=== PATIENT | female | born 1960 | race Caucasian/White ===

== ENCOUNTER 2023-05-10 17:02 | Inpatient (IN) | payer MEDICAID ==
[~2023-05-10] VITALS: Ht 160 cm; Wt 60.3 kg
[~2023-05-10 17:02] MED LIST: ALLO100T PO; DIVA500T53 PO; DOCU250C91 PO; PALI156D IM; RISP1TAB89 PO
[2023-05-10 17:51] LABS: GLUCOMETER DEV NAME(LOC) POC.BV; POC SARS-COV2 AG, FIA NEGATIVE (NEGATIVE)
[2023-05-10] MEDS ORDERED: LOSA100T59 PO (17:58)
[2023-05-10] MEDS ORDERED: ATOR20TA65 PO (17:58)
[2023-05-10] MEDS ORDERED: TRAZ150T80 PO (17:58)
[2023-05-10] MEDS ORDERED: RISP125S SQ (17:58)
[2023-05-10] MEDS ORDERED: BENZ0.5T6 PO (17:58)
[2023-05-10] MEDS ORDERED: MIRT-93 PO (17:58)
[2023-05-10] MEDS ORDERED: INFLUENZA VIRUS VACCINE QVS 2023-24 (6MO+)/PF 60 MCG/0.5 ML SYRINGE IM. ONE (18:15)
[2023-05-10 19:49] VITALS: BP 128/81; PULSE 75; RESP 18; TEMP 97.8; O2SAT 96
[2023-05-10 21:26] VITALS: RESP 18; TEMP 98
[2023-05-11 07:41] LABS: GLUCOMETER DEV NAME(LOC) BV2S.; GLUCOSE,POINT OF CARE 129 MG/DL (70-110)
[2023-05-11 07:45] LABS: BASOPHILS % (AUTO) 0.5 % (0.0-2.0); EOSINOPHILS % (AUTO) 1.6 % (1.0-6.0); HEMATOCRIT 37.4 % (36-46); HEMOGLOBIN 12.3 g/dL (12.0-16.0); LYMPHOCYTES % (AUTO) 31.2 % (22.0-44.0); MEAN CORPUSCULAR HEMOGLOBIN 28.8 pg (26.0-34.0); MEAN CORPUSCULAR VOLUME 87 fL (80-100); MONOCYTES # (AUTO) 0.5 K/uL (0.1-1.0); MONOCYTES % (AUTO) 7.4 % (2.0-9.0); NEUTROPHILS # (AUTO) 3.9 K/uL (1.8-7.7); NEUTROPHILS % (AUTO) 59.3 % (40.0-70.0); PLATELET COUNT (AUTO) 221 K/uL (150-450); RED BLOOD CELL COUNT(AUTO) 4.28 MIL/uL (4.00-5.20); RED CELL DISTRIBUTION WIDTH 13.6 % (11.5-14.5); WHITE BLOOD COUNT (AUTO) 6.5 K/uL (4.5-11.0)
[2023-05-11 08:23] LABS: ALBUMIN 3.4 g/dL (3.4-5.0); BILIRUBIN,TOTAL 0.6 mg/dL (0.1-1.0); CALCIUM, TOTAL 9.4 mg/dL (8.8-10.5); CHOL/HDL RATIO 3.1 (3.9-5.7); CREATININE 1.38 mg/dL (0.60-1.30); FREE T4 (FREE THYROXINE) 0.95 ng/dL (0.76-1.46); POTASSIUM 3.8 mmol/L (3.5-5.1); THYROID STIMULATING HORMONE 2.09 uIU/mL (0.36-3.74); TOTAL PROTEIN, SERUM 7.6 g/dL (6.4-8.2)
[2023-05-11 08:37] VITALS: BP 111/82; PULSE 84; RESP 18; TEMP 97.6; O2SAT 98
[2023-05-11] MEDS: HALOPERIDOL 5 MG TABLET PO PRN (09:36)
[2023-05-11] MEDS: LORazepam 2 MG TABLET PO PRN (09:36)
[2023-05-11] MEDS ORDERED: IBUPROFEN 400 MG TABLET PO PRN (14:00)
[2023-05-11] MEDS ORDERED: CloNIDine HCL 0.1 MG TABLET PO PRN (14:00)
[2023-05-11] MEDS ORDERED: PETROLATUM,WHITE 28 GM JELLY TP PRN (14:00)
[2023-05-11] MEDS ORDERED: MAG HYDROX/ALUMINUM HYD/SIMETH ES 30 ML SUSPENSION UDCUP PO PRN (14:00)
[2023-05-11] MEDS ORDERED: ACETAMINOPHEN 325 MG TABLET PO PRN (14:00)
[2023-05-11] MEDS ORDERED: ALBUTEROL SULFATE HFA 90 MCG/PUFF 8 GM INHALER IH PRN (14:00)
[2023-05-11] MEDS ORDERED: GuaiFENesin/D-METHORPHAN [SUGAR-FREE] 200-20MG/10 ML SYRUP UDCUP PO PRN (14:00)
[2023-05-11] MEDS ORDERED: DOCUSATE SODIUM 100 MG CAPSULE PO PRN (14:00)
[2023-05-11] MEDS ORDERED: ONDANSETRON HCL 4 MG TABLET PO PRN (14:00)
[2023-05-11] MEDS ORDERED: LOPERAMIDE HCL 2 MG CAPSULE PO PRN (14:00)
[2023-05-11] MEDS ORDERED: NICOTINE 14 MG/24 HOUR PATCH TD PRN (14:00)
[2023-05-11] MEDS: RisperiDONE 2 MG TABLET PO SCH (17:00)
[2023-05-11] MEDS: MIRTAZAPINE 30 MG TABLET PO SCH (20:21)
[2023-05-11] MEDS: BENZTROPINE MESYLATE 0.5 MG TABLET PO SCH (20:21)
[2023-05-11] MEDS: TraZODone HCL 150 MG TABLET PO SCH (20:21)
[2023-05-12 00:03] VITALS: RESP 18; TEMP 97.8
[2023-05-12 01:44] VITALS: BP 139/62; PULSE 77; RESP 18; TEMP 97.6
[2023-05-12] MEDS: RisperiDONE 2 MG TABLET PO SCH ×2 (08:56→16:39)
[2023-05-12] MEDS: MAGNESIUM HYDROXIDE SUSPENSION 30 ML UDCUP PO PRN (08:56)
[2023-05-12] MEDS: ATORVASTATIN CALCIUM 20 MG TABLET PO SCH (08:56)
[2023-05-12 09:06] LABS: THYROID STIMULATING HORMONE 1.67 uIU/mL (0.36-3.74)
[2023-05-12 09:12] VITALS: BP 147/89; PULSE 80; RESP 18; TEMP 97.5; O2SAT 98
[2023-05-12 09:13] LABS: HEMOGLOBIN A1C 6.1 % (3.8-5.6)
[2023-05-12 09:31] LABS: CHOL/HDL RATIO 3.1 (3.9-5.7)
[2023-05-12] MEDS: LORazepam 2 MG TABLET PO PRN (15:45)
[2023-05-12] MEDS: MIRTAZAPINE 30 MG TABLET PO SCH (20:32)
[2023-05-12] MEDS: BENZTROPINE MESYLATE 0.5 MG TABLET PO SCH (20:32)
[2023-05-12] MEDS: TraZODone HCL 150 MG TABLET PO SCH (20:32)
[2023-05-12 21:06] LABS: GLUCOMETER DEV NAME(LOC) BV2S.; GLUCOSE,POINT OF CARE 180 MG/DL (70-110)
[2023-05-12 21:09] VITALS: BP 120/79; PULSE 87; RESP 18; TEMP 97.6; O2SAT 97
[2023-05-13] MEDS: ZOLPIDEM TARTRATE 10 MG TABLET PO PRN (01:55)
[2023-05-13 06:32] LABS: GLUCOMETER DEV NAME(LOC) BV2S.; GLUCOSE,POINT OF CARE 123 MG/DL (70-110)
[2023-05-13] MEDS: MetFORMIN HCL 500 MG TABLET PO SCH ×2 (06:47→17:08)
[2023-05-13 08:03] LABS: APPEARANCE,URINE CLEAR (CLEAR); BILIRUBIN,URINE NEGATIVE (NEGATIVE); COLOR,URINE COLORLESS (YELLOW); GLUCOSE, URINE (UA) NEGATIVE (NEGATIVE); KETONES,URINE NEGATIVE (NEGATIVE); LEUKOCYTE ESTERASE ,URINE NEGATIVE (NEGATIVE); NITRATE,URINE NEGATIVE (NEGATIVE); OCCULT BLOOD,URINE NEGATIVE (NEGATIVE); PH,URINE 5.5 (5.0-8.0); PH,URINE DRUG SCREEN 5.5 (5.0-8.0); PROTEIN,URINE NEGATIVE (NEGATIVE); SPECIFIC GRAVITIY, URINE 1.006 (1.003-1.030); UROBILINOGEN,URINE <=1.0 mg/dL (<=1.0)
[2023-05-13 08:12] LABS: ALCOHOL, URINE DRUG SCREEN NEGATIVE (NEGATIVE); AMPHET/METH SCREEN,URINE NEGATIVE (NEGATIVE); BARBITURATE SCREEN, URINE NEGATIVE (NEGATIVE); BENZODIAZEPINES SCREEN,URINE NEGATIVE (NEGATIVE); CANNABINOID SCREEN,URINE NEGATIVE (NEGATIVE); COCAINE SCREEN,URINE NEGATIVE (NEGATIVE); METHADONE SCREEN, URINE NEGATIVE (NEGATIVE); OPIATE SCREEN,URINE NEGATIVE (NEGATIVE); PHENCYCLIDINE SCREEN,URINE NEGATIVE (NEGATIVE)
[2023-05-13] MEDS: RisperiDONE 2 MG TABLET PO SCH ×2 (08:18→17:08)
[2023-05-13] MEDS: ATORVASTATIN CALCIUM 20 MG TABLET PO SCH (08:18)
[2023-05-13 09:23] VITALS: BP 136/68; PULSE 83; RESP 16; TEMP 97.5; O2SAT 98
[2023-05-13 14:00] VITALS: BP 131/71; PULSE 91; RESP 19; TEMP 97.3; O2SAT 97
[2023-05-13] MEDS: LORazepam 2 MG TABLET PO PRN (14:03)
[2023-05-13] MEDS: MIRTAZAPINE 30 MG TABLET PO SCH (20:13)
[2023-05-13] MEDS: BENZTROPINE MESYLATE 0.5 MG TABLET PO SCH (20:13)
[2023-05-13] MEDS: TraZODone HCL 150 MG TABLET PO SCH (20:13)
[2023-05-13 20:26] LABS: GLUCOMETER DEV NAME(LOC) BV2S.; GLUCOSE,POINT OF CARE 133 MG/DL (70-110)
[2023-05-13] MEDS: MAGNESIUM HYDROXIDE SUSPENSION 30 ML UDCUP PO PRN (22:23)
[2023-05-14 01:05] VITALS: BP 127/66; PULSE 82; RESP 18; TEMP 97.5; O2SAT 97
[2023-05-14] MEDS: MetFORMIN HCL 500 MG TABLET PO SCH ×2 (06:15→16:34)
[2023-05-14 06:31] LABS: GLUCOMETER DEV NAME(LOC) BV2S.; GLUCOSE,POINT OF CARE 134 MG/DL (70-110)
[2023-05-14] MEDS: ATORVASTATIN CALCIUM 20 MG TABLET PO SCH (08:50)
[2023-05-14] MEDS: RisperiDONE 2 MG TABLET PO SCH ×2 (08:50→16:34)
[2023-05-14 09:08] VITALS: BP 135/69; PULSE 82; RESP 19; TEMP 97.4; O2SAT 100
[2023-05-14] MEDS: LORazepam 2 MG TABLET PO PRN (10:01)
[2023-05-14] MEDS: BENZTROPINE MESYLATE 0.5 MG TABLET PO SCH (20:27)
[2023-05-14] MEDS: TraZODone HCL 150 MG TABLET PO SCH (20:27)
[2023-05-14] MEDS: MIRTAZAPINE 30 MG TABLET PO SCH (21:54)
[2023-05-14 22:15] VITALS: BP 141/89; PULSE 94; RESP 18; TEMP 98.1; O2SAT 96
[2023-05-15 06:31] LABS: GLUCOMETER DEV NAME(LOC) BV2S.; GLUCOSE,POINT OF CARE 118 MG/DL (70-110)
[2023-05-15] MEDS: MetFORMIN HCL 500 MG TABLET PO SCH ×2 (06:39→16:35)
[2023-05-15 08:36] VITALS: BP 140/84; PULSE 91; RESP 18; TEMP 98.6; O2SAT 98
[2023-05-15] MEDS: LORazepam 2 MG TABLET PO PRN (08:53)
[2023-05-15] MEDS: ATORVASTATIN CALCIUM 20 MG TABLET PO SCH (08:53)
[2023-05-15] MEDS: RisperiDONE 2 MG TABLET PO SCH ×2 (08:53→16:35)
[2023-05-15 20:28] VITALS: BP 122/86; PULSE 86; RESP 18; TEMP 97.6; O2SAT 90
[2023-05-15] MEDS: TraZODone HCL 150 MG TABLET PO SCH (20:40)
[2023-05-15] MEDS: MIRTAZAPINE 30 MG TABLET PO SCH (20:40)
[2023-05-15 20:41] LABS: GLUCOMETER DEV NAME(LOC) BV2S.; GLUCOSE,POINT OF CARE 159 MG/DL (70-110)
[2023-05-15] MEDS: BENZTROPINE MESYLATE 0.5 MG TABLET PO SCH (20:41)
[2023-05-16] MEDS: MetFORMIN HCL 500 MG TABLET PO SCH ×2 (06:02→17:22)
[2023-05-16 06:16] LABS: GLUCOMETER DEV NAME(LOC) BV2S.; GLUCOSE,POINT OF CARE 101 MG/DL (70-110)
[2023-05-16] MEDS: ATORVASTATIN CALCIUM 20 MG TABLET PO SCH (09:03)
[2023-05-16] MEDS: RisperiDONE 2 MG TABLET PO SCH ×2 (09:03→17:21)
[2023-05-16 09:14] VITALS: BP 133/68; PULSE 90; RESP 18; TEMP 97.4; O2SAT 95
[2023-05-16 20:32] VITALS: BP 120/59; PULSE 99; RESP 18; TEMP 97.9; O2SAT 98
[2023-05-16 21:55] LABS: GLUCOMETER DEV NAME(LOC) BV2S.; GLUCOSE,POINT OF CARE 95 MG/DL (70-110)
[2023-05-16] MEDS: MIRTAZAPINE 30 MG TABLET PO SCH (22:01)
[2023-05-16] MEDS: TraZODone HCL 150 MG TABLET PO SCH (22:01)
[2023-05-16] MEDS: ZOLPIDEM TARTRATE 10 MG TABLET PO PRN (22:01)
[2023-05-16] MEDS: LORazepam 2 MG TABLET PO PRN (22:01)
[2023-05-16] MEDS: BENZTROPINE MESYLATE 0.5 MG TABLET PO SCH (22:01)
[2023-05-16] MEDS: HALOPERIDOL 5 MG TABLET PO PRN (22:02)
[2023-05-17 06:26] LABS: GLUCOMETER DEV NAME(LOC) BV2S.; GLUCOSE,POINT OF CARE 94 MG/DL (70-110)
[2023-05-17] MEDS: MetFORMIN HCL 500 MG TABLET PO SCH ×2 (06:36→17:23)
[2023-05-17 08:48] VITALS: BP 144/81; PULSE 92; RESP 18; TEMP 98; O2SAT 96
[2023-05-17] MEDS: ATORVASTATIN CALCIUM 20 MG TABLET PO SCH (09:15)
[2023-05-17] MEDS: LORazepam 2 MG TABLET PO PRN (09:15)
[2023-05-17] MEDS: RisperiDONE 2 MG TABLET PO SCH ×2 (09:15→17:23)
[2023-05-17] MEDS: LOSARTAN POTASSIUM 25 MG TABLET PO SCH (09:22)
[2023-05-17] MEDS: HALOPERIDOL 5 MG TABLET PO PRN (10:03)
[2023-05-17] MEDS: TraZODone HCL 150 MG TABLET PO SCH (20:26)
[2023-05-17] MEDS: MIRTAZAPINE 30 MG TABLET PO SCH (20:26)
[2023-05-17] MEDS: BENZTROPINE MESYLATE 0.5 MG TABLET PO SCH (20:26)
[2023-05-17 20:33] VITALS: BP 104/82; PULSE 94; RESP 18; TEMP 97.8; O2SAT 97
[2023-05-17 21:21] LABS: GLUCOMETER DEV NAME(LOC) BV2S.; GLUCOSE,POINT OF CARE 137 MG/DL (70-110)
[2023-05-18 01:25] VITALS: BP 135/64; PULSE 87; RESP 17; TEMP 97.6; O2SAT 97
[2023-05-18] MEDS: LORazepam 2 MG TABLET PO PRN ×3 (01:34→21:55)
[2023-05-18] MEDS: ZOLPIDEM TARTRATE 10 MG TABLET PO PRN ×2 (01:34→21:55)
[2023-05-18] MEDS: MetFORMIN HCL 500 MG TABLET PO SCH ×2 (06:52→16:55)
[2023-05-18 07:11] LABS: GLUCOMETER DEV NAME(LOC) BV2S.; GLUCOSE,POINT OF CARE 101 MG/DL (70-110)
[2023-05-18] MEDS: RisperiDONE 2 MG TABLET PO SCH ×2 (08:46→16:55)
[2023-05-18] MEDS: ATORVASTATIN CALCIUM 20 MG TABLET PO SCH (08:46)
[2023-05-18] MEDS: HALOPERIDOL 5 MG TABLET PO PRN (08:47)
[2023-05-18] MEDS: LOSARTAN POTASSIUM 25 MG TABLET PO SCH (08:47)
[2023-05-18 09:26] VITALS: BP 126/77; PULSE 73; RESP 16; TEMP 97.7; O2SAT 98
[2023-05-18] MEDS: RisperiDONE 3 MG TABLET PO SCH (20:39)
[2023-05-18] MEDS: MIRTAZAPINE 30 MG TABLET PO SCH (20:39)
[2023-05-18] MEDS: TraZODone HCL 150 MG TABLET PO SCH (20:39)
[2023-05-18] MEDS: BENZTROPINE MESYLATE 0.5 MG TABLET PO SCH (20:39)
[2023-05-18 20:57] VITALS: BP 127/79; PULSE 90; RESP 18; TEMP 97.7
[2023-05-18 21:21] LABS: GLUCOMETER DEV NAME(LOC) BV2S.; GLUCOSE,POINT OF CARE 128 MG/DL (70-110)
[2023-05-19 06:36] LABS: GLUCOMETER DEV NAME(LOC) BV2S.; GLUCOSE,POINT OF CARE 108 MG/DL (70-110)
[2023-05-19] MEDS: MetFORMIN HCL 500 MG TABLET PO SCH ×2 (06:38→16:16)
[2023-05-19] MEDS: ATORVASTATIN CALCIUM 20 MG TABLET PO SCH (08:18)
[2023-05-19] MEDS: RisperiDONE 2 MG TABLET PO SCH (08:19)
[2023-05-19] MEDS: LOSARTAN POTASSIUM 25 MG TABLET PO SCH (08:19)
[2023-05-19] MEDS: LORazepam 2 MG TABLET PO PRN ×2 (08:37→15:52)
[2023-05-19 08:46] VITALS: BP 133/100; PULSE 87; RESP 17; TEMP 98; O2SAT 100
[2023-05-19 20:15] VITALS: BP 128/83; PULSE 105; RESP 18; TEMP 97.8; O2SAT 97
[2023-05-19] MEDS: RisperiDONE 3 MG TABLET PO SCH (21:00)
[2023-05-19] MEDS: MIRTAZAPINE 30 MG TABLET PO SCH (21:00)
[2023-05-19] MEDS: BENZTROPINE MESYLATE 0.5 MG TABLET PO SCH (21:00)
[2023-05-19] MEDS: TraZODone HCL 150 MG TABLET PO SCH (21:00)
[2023-05-20 01:46] VITALS: BP 138/69; PULSE 87; RESP 19; TEMP 97.6; O2SAT 95
[2023-05-20] MEDS: ZOLPIDEM TARTRATE 10 MG TABLET PO PRN (01:54)
[2023-05-20] MEDS: LORazepam 2 MG TABLET PO PRN ×3 (01:54→15:48)
[2023-05-20 06:16] LABS: GLUCOMETER DEV NAME(LOC) BV2S.; GLUCOSE,POINT OF CARE 91 MG/DL (70-110)
[2023-05-20] MEDS: MetFORMIN HCL 500 MG TABLET PO SCH ×2 (06:40→16:52)
[2023-05-20] MEDS: RisperiDONE 2 MG TABLET PO SCH (08:12)
[2023-05-20] MEDS: ATORVASTATIN CALCIUM 20 MG TABLET PO SCH (08:12)
[2023-05-20] MEDS: LOSARTAN POTASSIUM 25 MG TABLET PO SCH (08:12)
[2023-05-20 08:16] VITALS: BP 155/67; PULSE 91; RESP 17; TEMP 97.4; O2SAT 97
[2023-05-20] MEDS: HALOPERIDOL 5 MG TABLET PO PRN ×2 (09:55→15:48)
[2023-05-20] MEDS: MIRTAZAPINE 30 MG TABLET PO SCH (20:04)
[2023-05-20] MEDS: RisperiDONE 3 MG TABLET PO SCH (20:04)
[2023-05-20] MEDS: BENZTROPINE MESYLATE 0.5 MG TABLET PO SCH (20:04)
[2023-05-20] MEDS: TraZODone HCL 150 MG TABLET PO SCH (20:04)
[2023-05-20 20:10] VITALS: BP 139/70; PULSE 88; RESP 16; TEMP 98.5; O2SAT 97
[2023-05-20 20:26] LABS: GLUCOMETER DEV NAME(LOC) BV2S.; GLUCOSE,POINT OF CARE 104 MG/DL (70-110)
[2023-05-20 22:02] LABS: GLUCOMETER DEV NAME(LOC) BV2S.; GLUCOSE,POINT OF CARE 110 MG/DL (70-110)
[2023-05-21] MEDS ORDERED: LORazepam 2 MG/ML VIAL IM ONE ×3 (03:45→12:00)
[2023-05-21] MEDS ORDERED: HALOPERIDOL LACTATE 5 MG/ML VIAL IM ONE ×3 (03:45→12:00)
[2023-05-21] MEDS ORDERED: DiphenhydrAMINE HCL 50 MG/ML VIAL IM ONE ×3 (03:45→12:00)
[2023-05-21] MEDS ORDERED: HALOPERIDOL LACTATE 5 MG/ML VIAL ONE (03:46)
[2023-05-21] MEDS ORDERED: DiphenhydrAMINE HCL 50 MG/ML VIAL ONE (03:46)
[2023-05-21] MEDS ORDERED: LORazepam 2 MG/ML VIAL ONE (03:46)
[2023-05-21 06:27] LABS: GLUCOMETER DEV NAME(LOC) BV2S.; GLUCOSE,POINT OF CARE 107 MG/DL (70-110)
[2023-05-21] MEDS: MetFORMIN HCL 500 MG TABLET PO SCH ×2 (06:32→17:20)
[2023-05-21 07:30] LABS: BASOPHILS % (AUTO) 0.4 % (0.0-2.0); EOSINOPHILS % (AUTO) 1.3 % (1.0-6.0); HEMATOCRIT 40.4 % (36-46); HEMOGLOBIN 13.4 g/dL (12.0-16.0); LYMPHOCYTES # (AUTO) 1.9 K/uL (1.0-4.8); LYMPHOCYTES % (AUTO) 27.8 % (22.0-44.0); MEAN CORPUSCULAR HEMOGLOBIN 29.2 pg (26.0-34.0); MEAN CORPUSCULAR HGB CONC 33.2 G/dL (31.0-37.0); MEAN CORPUSCULAR VOLUME 88 fL (80-100); MONOCYTES # (AUTO) 0.4 K/uL (0.1-1.0); MONOCYTES % (AUTO) 5.8 % (2.0-9.0); NEUTROPHILS # (AUTO) 4.3 K/uL (1.8-7.7); NEUTROPHILS % (AUTO) 64.7 % (40.0-70.0); PLATELET COUNT (AUTO) 264 K/uL (150-450); RED BLOOD CELL COUNT(AUTO) 4.59 MIL/uL (4.00-5.20); RED CELL DISTRIBUTION WIDTH 13.1 % (11.5-14.5); WHITE BLOOD COUNT (AUTO) 6.7 K/uL (4.5-11.0)
[2023-05-21 07:43] LABS: ALBUMIN 3.8 g/dL (3.4-5.0); BILIRUBIN,TOTAL 0.5 mg/dL (0.1-1.0); CALCIUM, TOTAL 9.6 mg/dL (8.8-10.5); CREATININE 1.49 mg/dL (0.60-1.30); POTASSIUM 3.8 mmol/L (3.5-5.1); TOTAL PROTEIN, SERUM 8.7 g/dL (6.4-8.2)
[2023-05-21 07:50] LABS: APPEARANCE,URINE CLEAR (CLEAR); BILIRUBIN,URINE NEGATIVE (NEGATIVE); COLOR,URINE LIGHT YELLOW (YELLOW); GLUCOSE, URINE (UA) NEGATIVE (NEGATIVE); KETONES,URINE NEGATIVE (NEGATIVE); LEUKOCYTE ESTERASE ,URINE NEGATIVE (NEGATIVE); NITRATE,URINE NEGATIVE (NEGATIVE); OCCULT BLOOD,URINE NEGATIVE (NEGATIVE); PH,URINE 5.5 (5.0-8.0); PROTEIN,URINE NEGATIVE (NEGATIVE); SPECIFIC GRAVITIY, URINE 1.008 (1.003-1.030); UROBILINOGEN,URINE <=1.0 mg/dL (<=1.0)
[2023-05-21 08:00] LABS: BACTERIA,URINE None Seen /HPF (None Seen); RBC,URINE None Seen /HPF (0-2); SQUAMOUS EPITHELIAL CELL,UR None Seen /LPF (None Seen); WBC,URINE None Seen /HPF (0-5)
[2023-05-21] MEDS: ATORVASTATIN CALCIUM 20 MG TABLET PO SCH (08:19)
[2023-05-21] MEDS: RisperiDONE 2 MG TABLET PO SCH (08:19)
[2023-05-21] MEDS: LOSARTAN POTASSIUM 25 MG TABLET PO SCH (08:19)
[2023-05-21 09:42] VITALS: BP 134/82; PULSE 83; RESP 16; TEMP 97.5; O2SAT 98
[2023-05-21 13:26] VITALS: BP 141/85; PULSE 74; RESP 16; TEMP 97.4
[2023-05-21 20:01] VITALS: BP 149/95; PULSE 97; RESP 18; TEMP 97.9
[2023-05-21] MEDS: BENZTROPINE MESYLATE 0.5 MG TABLET PO SCH (20:14)
[2023-05-21] MEDS: MIRTAZAPINE 30 MG TABLET PO SCH (20:14)
[2023-05-21] MEDS: TraZODone HCL 150 MG TABLET PO SCH (20:14)
[2023-05-21] MEDS: RisperiDONE 3 MG TABLET PO SCH (20:17)
[2023-05-21 21:01] LABS: GLUCOMETER DEV NAME(LOC) BV3S.; GLUCOSE,POINT OF CARE 225 MG/DL (70-110)
[2023-05-22 06:01] LABS: GLUCOMETER DEV NAME(LOC) BV3S.; GLUCOSE,POINT OF CARE 111 MG/DL (70-110)
[2023-05-22] MEDS: MetFORMIN HCL 500 MG TABLET PO SCH ×2 (06:37→16:09)
[2023-05-22] MEDS: RisperiDONE 2 MG TABLET PO SCH (08:02)
[2023-05-22] MEDS: LOSARTAN POTASSIUM 25 MG TABLET PO SCH (08:02)
[2023-05-22] MEDS: ATORVASTATIN CALCIUM 20 MG TABLET PO SCH (08:02)
[2023-05-22 08:15] VITALS: BP 136/82; PULSE 88; RESP 18; TEMP 97.7; O2SAT 97
[2023-05-22] MEDS: MIRTAZAPINE 30 MG TABLET PO SCH (20:05)
[2023-05-22] MEDS: BENZTROPINE MESYLATE 0.5 MG TABLET PO SCH (20:05)
[2023-05-22] MEDS: TraZODone HCL 150 MG TABLET PO SCH (20:05)
[2023-05-22] MEDS: RisperiDONE 4 MG TABLET PO SCH (20:06)
[2023-05-22 21:06] LABS: GLUCOMETER DEV NAME(LOC) BV3S.; GLUCOSE,POINT OF CARE 115 MG/DL (70-110)
[2023-05-23] MEDS: LORazepam 2 MG TABLET PO PRN ×3 (02:07→16:02)
[2023-05-23] MEDS: HALOPERIDOL 5 MG TABLET PO PRN ×3 (02:07→16:02)
[2023-05-23] MEDS: MetFORMIN HCL 500 MG TABLET PO SCH ×2 (06:39→16:02)
[2023-05-23 06:46] LABS: GLUCOMETER DEV NAME(LOC) BV3S.; GLUCOSE,POINT OF CARE 104 MG/DL (70-110)
[2023-05-23 07:35] VITALS: RESP 18; O2SAT 98
[2023-05-23] MEDS: RisperiDONE 2 MG TABLET PO SCH (08:10)
[2023-05-23 08:11] VITALS: BP 147/95; PULSE 100; RESP 18; TEMP 97.9; O2SAT 97
[2023-05-23] MEDS: ATORVASTATIN CALCIUM 20 MG TABLET PO SCH (09:27)
[2023-05-23] MEDS: LOSARTAN POTASSIUM 25 MG TABLET PO SCH (09:28)
[2023-05-23] MEDS ORDERED: ChlordiazePOXIDE HCL 25 MG CAPSULE PO PRN (13:00)
[2023-05-23] MEDS ORDERED: PARoxetine HCL 20 MG TABLET PO SCH (13:15)
[2023-05-23] MEDS: BENZTROPINE MESYLATE 0.5 MG TABLET PO SCH (20:11)
[2023-05-23] MEDS: MIRTAZAPINE 30 MG TABLET PO SCH (20:12)
[2023-05-23] MEDS: TraZODone HCL 150 MG TABLET PO SCH (20:12)
[2023-05-23] MEDS: RisperiDONE 4 MG TABLET PO SCH (20:12)
[2023-05-23 21:00] VITALS: BP 112/60; PULSE 85; RESP 18; TEMP 98; O2SAT 96
[2023-05-23 21:21] LABS: GLUCOMETER DEV NAME(LOC) BV3S.; GLUCOSE,POINT OF CARE 115 MG/DL (70-110)
[2023-05-24] MEDS: MetFORMIN HCL 500 MG TABLET PO SCH ×2 (06:09→16:01)
[2023-05-24 06:21] LABS: GLUCOMETER DEV NAME(LOC) BV3S.; GLUCOSE,POINT OF CARE 94 MG/DL (70-110)
[2023-05-24] MEDS ORDERED: ChlordiazePOXIDE HCL 25 MG CAPSULE PO PRN (07:00)
[2023-05-24] MEDS: RisperiDONE 2 MG TABLET PO SCH (08:13)
[2023-05-24] MEDS: ATORVASTATIN CALCIUM 20 MG TABLET PO SCH (08:13)
[2023-05-24] MEDS: LOSARTAN POTASSIUM 25 MG TABLET PO SCH (08:13)
[2023-05-24 08:30] VITALS: BP 133/90; PULSE 100; RESP 18; TEMP 98.3; O2SAT 95
[2023-05-24] MEDS ORDERED: ChlordiazePOXIDE HCL 25 MG CAPSULE PO SCH (09:00)
[2023-05-24] MEDS: HALOPERIDOL 5 MG TABLET PO PRN (11:26)
[2023-05-24] MEDS: LORazepam 2 MG TABLET PO PRN (11:26)
[2023-05-24] MEDS: MIRTAZAPINE 30 MG TABLET PO SCH (20:00)
[2023-05-24] MEDS: BENZTROPINE MESYLATE 0.5 MG TABLET PO SCH (20:00)
[2023-05-24] MEDS: RisperiDONE 4 MG TABLET PO SCH (20:00)
[2023-05-24] MEDS: TraZODone HCL 150 MG TABLET PO SCH (20:00)
[2023-05-24 21:01] LABS: GLUCOMETER DEV NAME(LOC) BV3S.; GLUCOSE,POINT OF CARE 121 MG/DL (70-110)
[2023-05-25] VITALS (11 sets, daily range): BP systolic 130–141; BP diastolic 71–89; PULSE 80–88; RESP 17–20; TEMP 97.5–98; O2SAT 96–99
[2023-05-25] MEDS: MetFORMIN HCL 500 MG TABLET PO SCH ×2 (05:33→18:01)
[2023-05-25 06:16] LABS: GLUCOMETER DEV NAME(LOC) BV3S.; GLUCOSE,POINT OF CARE 125 MG/DL (70-110)
[2023-05-25] MEDS: ATORVASTATIN CALCIUM 20 MG TABLET PO SCH (08:01)
[2023-05-25] MEDS: LORazepam 2 MG TABLET PO PRN (08:01)
[2023-05-25] MEDS: LOSARTAN POTASSIUM 25 MG TABLET PO SCH (08:01)
[2023-05-25] MEDS: RisperiDONE 2 MG TABLET PO SCH (08:01)
[2023-05-25] MEDS: HALOPERIDOL 5 MG TABLET PO PRN (08:01)
[2023-05-25] MEDS: TraZODone HCL 150 MG TABLET PO SCH (20:03)
[2023-05-25] MEDS: MIRTAZAPINE 30 MG TABLET PO SCH (20:03)
[2023-05-25] MEDS: BENZTROPINE MESYLATE 0.5 MG TABLET PO SCH (20:03)
[2023-05-25] MEDS: RisperiDONE 4 MG TABLET PO SCH (20:05)
[2023-05-25 20:11] LABS: GLUCOMETER DEV NAME(LOC) BV3S.; GLUCOSE,POINT OF CARE 118 MG/DL (70-110)
[2023-05-26] MEDS ORDERED: ChlordiazePOXIDE HCL 10 MG CAPSULE PO PRN (07:00)
[2023-05-26] MEDS: MetFORMIN HCL 500 MG TABLET PO SCH (07:00)
[2023-05-26] MEDS: LOSARTAN POTASSIUM 25 MG TABLET PO SCH (09:00)
[2023-05-26] MEDS ORDERED: ChlordiazePOXIDE HCL 10 MG CAPSULE PO SCH (09:00)
[2023-05-26] MEDS: ATORVASTATIN CALCIUM 20 MG TABLET PO SCH (09:00)
[2023-05-26] MEDS: RisperiDONE 2 MG TABLET PO SCH (09:00)
[2023-05-27] MEDS ORDERED: ChlordiazePOXIDE HCL 10 MG CAPSULE PO PRN (07:00)
== END 2023-05-26 14:23 | disposition short-term general hospital (02) | DRG 750 ==
LOC: B2S 17:22 → B3A 05-21 12:22
PROVIDERS: ADMIT Psychiatry & Neurology Child & Adolescent Psychiatry; ATTEND Psychiatry & Neurology Child & Adolescent Psychiatry
PROC: GZHZZZZ Group Psychotherapy (ICD-10-PCS; principal; 2023-05-13)
DX: F20.0 Paranoid schizophrenia (principal); N17.9 Acute kidney failure, unspecified; D49.6 Neoplasm of unspecified behavior of brain; E78.5 Hyperlipidemia, unspecified; I10 Essential (primary) hypertension; Z20.822 Contact with and (suspected) exposure to COVID-19; G47.00 Insomnia, unspecified; F41.9 Anxiety disorder, unspecified; M10.9 Gout, unspecified; Z79.899 Other long term (current) drug therapy
CPT/HCPCS: 70450; 72125; 73521; 80053; 80061; 80307; 81001; 81003; 82140; 82962; 83036; 84439; 84443; 85025; J1200; J1630; J2060

== ENCOUNTER 2023-05-25 23:28 | Inpatient (IN) | payer MEDICAID, OTHER ==
[~2023-05-25] VITALS: Ht 190.5 cm; Wt 62.0 kg
[~2023-05-25 23:28] MED LIST changes: -ALLO100T PO; +ATOR20TA65 PO; +BENZ0.5T6 PO; -DIVA500T53 PO; -DOCU250C91 PO; +LOSA100T59 PO; +MIRT-93 PO; -PALI156D IM; +RISP125S SQ; -RISP1TAB89 PO; +TRAZ150T80 PO
[2023-05-26 01:38] LABS: BASOPHILS % (AUTO) 0.6 % (0.0-2.0); HEMATOCRIT 37.4 % (36-46); HEMOGLOBIN 12.4 g/dL (12.0-16.0); LYMPHOCYTES # (AUTO) 2.2 K/uL (1.0-4.8); LYMPHOCYTES % (AUTO) 37.2 % (22.0-44.0); MEAN CORPUSCULAR HGB CONC 33.2 G/dL (31.0-37.0); MEAN CORPUSCULAR VOLUME 87 fL (80-100); MONOCYTES # (AUTO) 0.4 K/uL (0.1-1.0); MONOCYTES % (AUTO) 7.4 % (2.0-9.0); NEUTROPHILS # (AUTO) 3.1 K/uL (1.8-7.7); NEUTROPHILS % (AUTO) 51.8 % (40.0-70.0); PLATELET COUNT (AUTO) 235 K/uL (150-450); RED BLOOD CELL COUNT(AUTO) 4.29 MIL/uL (4.00-5.20); RED CELL DISTRIBUTION WIDTH 13.4 % (11.5-14.5); WHITE BLOOD COUNT (AUTO) 5.9 K/uL (4.5-11.0)
[2023-05-26 01:47] LABS: CALCIUM, TOTAL 9.2 mg/dL (8.8-10.5); CREATININE 1.43 mg/dL (0.60-1.30); POTASSIUM 3.8 mmol/L (3.5-5.1)
[2023-05-26 01:55] LABS: ALBUMIN 3.4 g/dL (3.4-5.0); BILIRUBIN,TOTAL 0.6 mg/dL (0.1-1.0); TOTAL PROTEIN, SERUM 7.3 g/dL (6.4-8.2)
[2023-05-26] MEDS ORDERED: LORazepam 1 MG TABLET PO ONE (04:30)
[2023-05-26] MEDS ORDERED: LORazepam 2 MG/ML VIAL IVP ONE ×2 (05:00→17:30)
[2023-05-26] MEDS ORDERED: HALOPERIDOL LACTATE 5 MG/ML VIAL IM ONE ×2 (05:15→05:30)
[2023-05-26] MEDS ORDERED: GADOTERATE MEGLUMINE 10 MMOL/20 ML VIAL IVP ONE (06:18)
[2023-05-26] MEDS ORDERED: OxyCODONE HCL/ACETAMINOPHEN 5-325 MG TABLET PO PRN (07:15)
[2023-05-26] MEDS ORDERED: SODIUM CHLORIDE 0.9% 1,000 ML IV ONE (07:15)
[2023-05-26] MEDS ORDERED: ONDANSETRON HCL 4 MG/2 ML VIAL IVP PRN (07:15)
[2023-05-26] MEDS ORDERED: ACETAMINOPHEN 325 MG TABLET PO PRN (07:15)
[2023-05-26] MEDS: DOCUSATE SODIUM 100 MG CAPSULE PO SCH ×3 (07:59→21:00)
[2023-05-26] MEDS: FAMOTIDINE 20 MG TABLET PO SCH ×2 (07:59→09:39)
[2023-05-26 12:12] LABS: COVID AG,FIA SOURCE NASAL SWAB
[2023-05-26 12:33] LABS: SARS-COV2 (COVID) ANTIGEN,FIA Negative (Negative)
[2023-05-26 12:47] VITALS: BP 143/103; PULSE 89; RESP 20; TEMP 98.4
[2023-05-26] MEDS: AmLODIPine BESYLATE 5 MG TABLET PO SCH (14:05)
[2023-05-26 16:14] VITALS: BP 150/85; PULSE 109; RESP 20; TEMP 98.6
[2023-05-26 20:11] VITALS: BP 113/59; PULSE 100; RESP 18; TEMP 98.2
[2023-05-27] MEDS ORDERED: DEXTROSE 5%-0.45% SODIUM CHL 1,000 ML IV ONE (00:30)
[2023-05-27 04:00] VITALS: BP 118/72; PULSE 97; RESP 18; TEMP 98.6
[2023-05-27] MEDS: LORazepam 2 MG/ML VIAL IVP PRN ×3 (04:11→20:56)
[2023-05-27 06:19] VITALS: BP 127/75; PULSE 98; RESP 16; TEMP 97.9
[2023-05-27] MEDS: DOCUSATE SODIUM 100 MG CAPSULE PO SCH ×2 (08:23→20:56)
[2023-05-27] MEDS: AmLODIPine BESYLATE 5 MG TABLET PO SCH (08:23)
[2023-05-27] MEDS: FAMOTIDINE 20 MG TABLET PO SCH (08:23)
[2023-05-27 11:48] LABS: CREATININE 1.37 mg/dL (0.60-1.30); POTASSIUM 3.6 mmol/L (3.5-5.1)
[2023-05-27 14:47] VITALS: BP_SYST 145; BP_SYST 151; BP_DIAS 85; BP_DIAS 92; PULSE 102; PULSE 115; RESP 20; TEMP 98.3
[2023-05-27 20:45] VITALS: BP 135/78; PULSE 80; RESP 20; TEMP 98.1
[2023-05-28 05:27] VITALS: BP 137/77; PULSE 76; RESP 18; TEMP 97.4
[2023-05-28 07:45] VITALS: BP 144/84; PULSE 80; RESP 19; TEMP 97.7
[2023-05-28] MEDS: FAMOTIDINE 20 MG TABLET PO SCH (09:41)
[2023-05-28] MEDS: DOCUSATE SODIUM 100 MG CAPSULE PO SCH ×2 (09:41→21:00)
[2023-05-28] MEDS: AmLODIPine BESYLATE 5 MG TABLET PO SCH (09:41)
[2023-05-28 15:49] VITALS: BP 157/98; PULSE 98; RESP 19; TEMP 98.3
[2023-05-28 21:00] VITALS: BP 145/91; PULSE 101; RESP 20; TEMP 99.9
[2023-05-28] MEDS: LORazepam 2 MG/ML VIAL IVP PRN (21:58)
[2023-05-29] MEDS: LORazepam 2 MG/ML VIAL IVP PRN (05:37)
[2023-05-29 09:08] VITALS: BP 117/88; PULSE 83; RESP 18; TEMP 98.9
[2023-05-29] MEDS: FAMOTIDINE 20 MG TABLET PO SCH (09:10)
[2023-05-29] MEDS: AmLODIPine BESYLATE 5 MG TABLET PO SCH (09:10)
[2023-05-29] MEDS: DOCUSATE SODIUM 100 MG CAPSULE PO SCH (09:10)
[2023-05-29 10:57] LABS: COVID AG,FIA SOURCE NASAL SWAB
[2023-05-29 11:14] LABS: SARS-COV2 (COVID) ANTIGEN,FIA Negative (Negative)
== END 2023-05-29 15:35 | DRG 58 ==
LOC: EMS 23:28 → 6N 05-26 11:32
PROVIDERS: ADMIT Internal Medicine; ATTEND Internal Medicine
DX: D32.0 Benign neoplasm of cerebral meninges (principal); G93.40 Encephalopathy, unspecified; N17.9 Acute kidney failure, unspecified; F25.9 Schizoaffective disorder, unspecified; Z20.822 Contact with and (suspected) exposure to COVID-19; I10 Essential (primary) hypertension; M10.9 Gout, unspecified; F41.9 Anxiety disorder, unspecified; E78.00 Pure hypercholesterolemia, unspecified; Z79.899 Other long term (current) drug therapy
CPT/HCPCS: 70551; 70553; 80048; 80053; 85025; 99285; G0480; J1630; J2060; J7030

== ENCOUNTER 2023-05-29 09:54 | Inpatient (IN) | payer MEDICAID ==
[~2023-05-29] VITALS: Ht 160 cm; Wt 63.5 kg
[2023-05-29 17:20] VITALS: BP 145/89; PULSE 90; RESP 18; TEMP 98.1; O2SAT 99
[2023-05-29] MEDS ORDERED: PNEUMOCOCCAL VACCINE POLYVALENT 0.5 ML SYRINGE [PPSV23] IM. ONE (18:00)
[2023-05-29] MEDS ORDERED: INFLUENZA VIRUS VACCINE QVS 2023-24 (6MO+)/PF 60 MCG/0.5 ML SYRINGE IM. ONE (18:00)
[2023-05-29] MEDS: DOCUSATE SODIUM 100 MG CAPSULE PO SCH (21:15)
[2023-05-29 21:27] VITALS: BP 125/61; PULSE 75; RESP 18; TEMP 98.1
[2023-05-30 08:11] VITALS: BP 119/58; PULSE 88; RESP 18; TEMP 97.3; O2SAT 97
[2023-05-30] MEDS: FAMOTIDINE 20 MG TABLET PO SCH (08:15)
[2023-05-30] MEDS: LORazepam 2 MG TABLET PO PRN ×2 (08:15→22:12)
[2023-05-30] MEDS: DOCUSATE SODIUM 100 MG CAPSULE PO SCH ×2 (08:15→20:04)
[2023-05-30] MEDS: AmLODIPine BESYLATE 5 MG TABLET PO SCH (08:15)
[2023-05-30] MEDS ORDERED: NICOTINE 14 MG/24 HOUR PATCH TD PRN (10:15)
[2023-05-30] MEDS ORDERED: ACETAMINOPHEN 325 MG TABLET PO PRN (10:15)
[2023-05-30] MEDS ORDERED: GuaiFENesin/D-METHORPHAN [SUGAR-FREE] 200-20MG/10 ML SYRUP UDCUP PO PRN (10:15)
[2023-05-30] MEDS ORDERED: CloNIDine HCL 0.1 MG TABLET PO PRN (10:15)
[2023-05-30] MEDS ORDERED: DOCUSATE SODIUM 100 MG CAPSULE PO PRN (10:15)
[2023-05-30] MEDS ORDERED: ALBUTEROL SULFATE HFA 90 MCG/PUFF 8 GM INHALER IH PRN (10:15)
[2023-05-30] MEDS ORDERED: ONDANSETRON HCL 4 MG TABLET PO PRN (10:15)
[2023-05-30] MEDS ORDERED: MAGNESIUM HYDROXIDE SUSPENSION 30 ML UDCUP PO PRN (10:15)
[2023-05-30] MEDS ORDERED: LOPERAMIDE HCL 2 MG CAPSULE PO PRN (10:15)
[2023-05-30] MEDS ORDERED: PETROLATUM,WHITE 28 GM JELLY TP PRN (10:15)
[2023-05-30] MEDS ORDERED: IBUPROFEN 400 MG TABLET PO PRN (10:15)
[2023-05-30] MEDS ORDERED: MAG HYDROX/ALUMINUM HYD/SIMETH ES 30 ML SUSPENSION UDCUP PO PRN (10:15)
[2023-05-30] MEDS: BENZTROPINE MESYLATE 0.5 MG TABLET PO SCH (20:19)
[2023-05-30] MEDS: RisperiDONE 1 MG TABLET PO SCH (20:19)
[2023-05-30] MEDS ORDERED: MIRTAZAPINE 15 MG TABLET PO SCH (21:00)
[2023-05-30 23:35] VITALS: BP 128/62; PULSE 87; RESP 18; TEMP 97.6; O2SAT 98
[2023-05-31 08:22] VITALS: BP 135/87; PULSE 90; RESP 18; TEMP 97.9; O2SAT 97
[2023-05-31 08:26] LABS: HEMOGLOBIN A1C 5.9 % (3.8-5.6)
[2023-05-31] MEDS: RisperiDONE 1 MG TABLET PO SCH (08:40)
[2023-05-31] MEDS: BENZTROPINE MESYLATE 0.5 MG TABLET PO SCH (08:40)
[2023-05-31] MEDS: LORazepam 2 MG TABLET PO PRN (08:40)
[2023-05-31] MEDS: FAMOTIDINE 20 MG TABLET PO SCH (08:40)
[2023-05-31] MEDS: AmLODIPine BESYLATE 5 MG TABLET PO SCH (08:41)
[2023-05-31] MEDS: DOCUSATE SODIUM 100 MG CAPSULE PO SCH (08:41)
[2023-05-31] MEDS: ATORVASTATIN CALCIUM 20 MG TABLET PO SCH (08:43)
[2023-05-31 08:50] LABS: CHOL/HDL RATIO 3.3 (3.9-5.7); THYROID STIMULATING HORMONE 2.69 uIU/mL (0.36-3.74)
[2023-05-31 17:20] VITALS: RESP 18
[2023-05-31 17:35] VITALS: RESP 19
[2023-05-31 17:50] VITALS: RESP 18
[2023-05-31 18:18] VITALS: BP 120/84; PULSE 99; RESP 18; TEMP 97.9
[2023-05-31 18:30] VITALS: BP 120/84; RESP 18; O2SAT 98
[2023-06-01 00:30] VITALS: BP 134/78; PULSE 71; RESP 18; TEMP 97.3
[2023-06-01] MEDS: LORazepam 2 MG TABLET PO PRN ×2 (04:59→17:37)
[2023-06-01 05:03] VITALS: RESP 18
[2023-06-01 08:07] LABS: HEPATITIS C AB (EIA) Non Reactive (Non Reactive)
[2023-06-01] MEDS: AmLODIPine BESYLATE 5 MG TABLET PO SCH (08:23)
[2023-06-01] MEDS: FAMOTIDINE 20 MG TABLET PO SCH (08:23)
[2023-06-01] MEDS: ATORVASTATIN CALCIUM 20 MG TABLET PO SCH (08:24)
[2023-06-01] MEDS: BENZTROPINE MESYLATE 0.5 MG TABLET PO SCH ×2 (08:28→20:13)
[2023-06-01] MEDS: RisperiDONE 1 MG TABLET PO SCH ×2 (08:29→20:12)
[2023-06-01] MEDS: DOCUSATE SODIUM 100 MG CAPSULE PO SCH ×2 (08:30→20:12)
[2023-06-01 08:41] VITALS: BP 159/66; PULSE 84; RESP 17; TEMP 97.9; O2SAT 98
[2023-06-01] MEDS: MIRTAZAPINE 15 MG TABLET PO SCH (20:13)
[2023-06-01 23:30] VITALS: RESP 18; TEMP 97.8
[2023-06-02] MEDS ORDERED: DiphenhydrAMINE HCL 50 MG/ML VIAL ONE (06:54)
[2023-06-02] MEDS ORDERED: LORazepam 2 MG/ML VIAL ONE (06:54)
[2023-06-02] MEDS ORDERED: HALOPERIDOL LACTATE 5 MG/ML VIAL ONE (06:54)
[2023-06-02] MEDS ORDERED: DiphenhydrAMINE HCL 50 MG/ML VIAL IM ONE (07:30)
[2023-06-02] MEDS ORDERED: LORazepam 2 MG/ML VIAL IM ONE (07:30)
[2023-06-02] MEDS ORDERED: HALOPERIDOL LACTATE 5 MG/ML VIAL IM ONE (07:30)
[2023-06-02 07:49] VITALS: RESP 18
[2023-06-02] MEDS: LORazepam 2 MG TABLET PO PRN ×2 (08:12→21:02)
[2023-06-02] MEDS: BENZTROPINE MESYLATE 0.5 MG TABLET PO SCH ×2 (08:12→20:00)
[2023-06-02] MEDS: RisperiDONE 1 MG TABLET PO SCH (08:12)
[2023-06-02] MEDS: DOCUSATE SODIUM 100 MG CAPSULE PO SCH ×2 (08:12→20:00)
[2023-06-02] MEDS: ATORVASTATIN CALCIUM 20 MG TABLET PO SCH (08:13)
[2023-06-02] MEDS: FAMOTIDINE 20 MG TABLET PO SCH (08:13)
[2023-06-02] MEDS: AmLODIPine BESYLATE 5 MG TABLET PO SCH (08:13)
[2023-06-02] MEDS: MIRTAZAPINE 15 MG TABLET PO SCH (20:00)
[2023-06-02] MEDS: DIVALPROEX SODIUM 500 MG DR TABLET PO SCH (20:01)
[2023-06-02] MEDS: RisperiDONE 3 MG TABLET PO SCH (20:02)
[2023-06-02 21:16] VITALS: BP 121/80; PULSE 99; RESP 18; TEMP 97.8
[2023-06-03] MEDS: BENZTROPINE MESYLATE 0.5 MG TABLET PO SCH ×3 (08:11→21:00)
[2023-06-03] MEDS: RisperiDONE 3 MG TABLET PO SCH ×3 (08:11→21:00)
[2023-06-03] MEDS: AmLODIPine BESYLATE 5 MG TABLET PO SCH (08:11)
[2023-06-03] MEDS: ATORVASTATIN CALCIUM 20 MG TABLET PO SCH (08:11)
[2023-06-03] MEDS: LORazepam 2 MG TABLET PO PRN (08:11)
[2023-06-03] MEDS: FAMOTIDINE 20 MG TABLET PO SCH (08:12)
[2023-06-03] MEDS: DOCUSATE SODIUM 100 MG CAPSULE PO SCH ×3 (08:12→21:00)
[2023-06-03 08:33] VITALS: BP 133/76; PULSE 97; RESP 18; TEMP 97.9; O2SAT 99
[2023-06-03] MEDS: MIRTAZAPINE 15 MG TABLET PO SCH ×2 (20:35→21:00)
[2023-06-03] MEDS: DIVALPROEX SODIUM 500 MG DR TABLET PO SCH ×2 (20:36→21:00)
[2023-06-04] MEDS: FAMOTIDINE 20 MG TABLET PO SCH (08:02)
[2023-06-04] MEDS: BENZTROPINE MESYLATE 0.5 MG TABLET PO SCH ×2 (08:02→20:16)
[2023-06-04] MEDS: LORazepam 2 MG TABLET PO PRN (08:02)
[2023-06-04] MEDS: RisperiDONE 3 MG TABLET PO SCH ×2 (08:02→20:18)
[2023-06-04] MEDS: DOCUSATE SODIUM 100 MG CAPSULE PO SCH ×2 (08:02→20:17)
[2023-06-04] MEDS: ATORVASTATIN CALCIUM 20 MG TABLET PO SCH (08:02)
[2023-06-04] MEDS: AmLODIPine BESYLATE 5 MG TABLET PO SCH (08:02)
[2023-06-04] MEDS: DIVALPROEX SODIUM 500 MG DR TABLET PO SCH (20:17)
[2023-06-04] MEDS: MIRTAZAPINE 15 MG TABLET PO SCH (20:18)
[2023-06-04 23:06] VITALS: BP 148/78; PULSE 100; RESP 18; TEMP 97.3; O2SAT 99
[2023-06-05] MEDS: LORazepam 2 MG TABLET PO PRN ×2 (02:36→10:09)
[2023-06-05] MEDS: BENZTROPINE MESYLATE 0.5 MG TABLET PO SCH ×2 (08:12→20:01)
[2023-06-05] MEDS: FAMOTIDINE 20 MG TABLET PO SCH (08:12)
[2023-06-05] MEDS: DOCUSATE SODIUM 100 MG CAPSULE PO SCH ×2 (08:12→20:02)
[2023-06-05] MEDS: ATORVASTATIN CALCIUM 20 MG TABLET PO SCH (08:12)
[2023-06-05] MEDS: RisperiDONE 3 MG TABLET PO SCH ×2 (08:12→20:01)
[2023-06-05] MEDS: AmLODIPine BESYLATE 5 MG TABLET PO SCH (08:12)
[2023-06-05 08:34] VITALS: BP 128/60; PULSE 79; RESP 17; TEMP 97.3; O2SAT 95
[2023-06-05] MEDS ORDERED: HALOPERIDOL LACTATE 5 MG/ML VIAL ONE (11:03)
[2023-06-05] MEDS ORDERED: DiphenhydrAMINE HCL 50 MG/ML VIAL ONE (11:03)
[2023-06-05] MEDS ORDERED: LORazepam 2 MG/ML VIAL ONE (11:03)
[2023-06-05] MEDS ORDERED: HALOPERIDOL LACTATE 5 MG/ML VIAL IM ONE (11:15)
[2023-06-05] MEDS ORDERED: LORazepam 2 MG/ML VIAL IM ONE (11:15)
[2023-06-05] MEDS ORDERED: DiphenhydrAMINE HCL 50 MG/ML VIAL IM ONE (11:15)
[2023-06-05] MEDS: MIRTAZAPINE 15 MG TABLET PO SCH (20:01)
[2023-06-05] MEDS: DIVALPROEX SODIUM 500 MG DR TABLET PO SCH (20:01)
[2023-06-06] MEDS: LORazepam 2 MG TABLET PO PRN ×3 (02:24→14:18)
[2023-06-06 05:17] VITALS: RESP 17
[2023-06-06] MEDS: AmLODIPine BESYLATE 5 MG TABLET PO SCH (08:16)
[2023-06-06] MEDS: ATORVASTATIN CALCIUM 20 MG TABLET PO SCH (08:16)
[2023-06-06] MEDS: BENZTROPINE MESYLATE 0.5 MG TABLET PO SCH ×2 (08:16→20:31)
[2023-06-06] MEDS: FAMOTIDINE 20 MG TABLET PO SCH (08:17)
[2023-06-06] MEDS: RisperiDONE 3 MG TABLET PO SCH ×2 (08:17→20:32)
[2023-06-06] MEDS: DOCUSATE SODIUM 100 MG CAPSULE PO SCH ×2 (08:19→20:31)
[2023-06-06 08:49] VITALS: BP 148/89; PULSE 100; RESP 18; TEMP 97.6; O2SAT 96
[2023-06-06 20:21] VITALS: BP 140/71; PULSE 86; RESP 19; TEMP 97.5
[2023-06-06] MEDS: DIVALPROEX SODIUM 500 MG DR TABLET PO SCH (20:31)
[2023-06-06] MEDS: MIRTAZAPINE 15 MG TABLET PO SCH (20:32)
[2023-06-07] MEDS: LORazepam 2 MG TABLET PO PRN ×2 (08:00→15:53)
[2023-06-07] MEDS: AmLODIPine BESYLATE 5 MG TABLET PO SCH (08:00)
[2023-06-07] MEDS: FAMOTIDINE 20 MG TABLET PO SCH (08:00)
[2023-06-07] MEDS: DOCUSATE SODIUM 100 MG CAPSULE PO SCH ×2 (08:00→20:08)
[2023-06-07] MEDS: ATORVASTATIN CALCIUM 20 MG TABLET PO SCH (08:00)
[2023-06-07] MEDS: BENZTROPINE MESYLATE 0.5 MG TABLET PO SCH ×2 (08:00→20:08)
[2023-06-07] MEDS: RisperiDONE 3 MG TABLET PO SCH ×2 (08:00→20:08)
[2023-06-07 09:21] VITALS: BP 149/84; PULSE 84; RESP 18; TEMP 98.4
[2023-06-07] MEDS: DIVALPROEX SODIUM 500 MG DR TABLET PO SCH (20:08)
[2023-06-07] MEDS: MIRTAZAPINE 15 MG TABLET PO SCH (20:08)
[2023-06-08 03:56] VITALS: BP 136/76; PULSE 82; TEMP 97.1
[2023-06-08] MEDS: FAMOTIDINE 20 MG TABLET PO SCH (08:17)
[2023-06-08] MEDS: BENZTROPINE MESYLATE 0.5 MG TABLET PO SCH ×3 (08:17→22:08)
[2023-06-08] MEDS: ATORVASTATIN CALCIUM 20 MG TABLET PO SCH (08:17)
[2023-06-08] MEDS: LORazepam 2 MG TABLET PO PRN ×2 (08:17→16:26)
[2023-06-08] MEDS: DOCUSATE SODIUM 100 MG CAPSULE PO SCH ×3 (08:17→22:08)
[2023-06-08] MEDS: AmLODIPine BESYLATE 5 MG TABLET PO SCH (08:17)
[2023-06-08] MEDS: RisperiDONE 3 MG TABLET PO SCH ×3 (08:17→22:09)
[2023-06-08 17:11] VITALS: RESP 18
[2023-06-08 20:03] VITALS: RESP 17
[2023-06-08] MEDS: MIRTAZAPINE 15 MG TABLET PO SCH ×2 (21:00→22:08)
[2023-06-08] MEDS: DIVALPROEX SODIUM 500 MG DR TABLET PO SCH ×2 (21:00→22:08)
[2023-06-09] MEDS: ATORVASTATIN CALCIUM 20 MG TABLET PO SCH (08:17)
[2023-06-09] MEDS: RisperiDONE 3 MG TABLET PO SCH ×2 (08:17→20:25)
[2023-06-09] MEDS: FAMOTIDINE 20 MG TABLET PO SCH (08:17)
[2023-06-09] MEDS: AmLODIPine BESYLATE 5 MG TABLET PO SCH (08:17)
[2023-06-09] MEDS: BENZTROPINE MESYLATE 0.5 MG TABLET PO SCH ×2 (08:17→20:28)
[2023-06-09] MEDS: DOCUSATE SODIUM 100 MG CAPSULE PO SCH ×2 (08:17→20:25)
[2023-06-09] MEDS: LORazepam 2 MG TABLET PO PRN (08:17)
[2023-06-09 09:36] VITALS: BP 135/80; PULSE 85; RESP 18; TEMP 97.5
[2023-06-09] MEDS ORDERED: RisperiDONE ER SUSPENSION 120 MG PRE-FILLED SYRINGE SQ SCH (10:00)
[2023-06-09] MEDS: DIVALPROEX SODIUM 500 MG DR TABLET PO SCH (20:25)
[2023-06-09] MEDS: MIRTAZAPINE 15 MG TABLET PO SCH (20:26)
[2023-06-09 23:49] VITALS: RESP 18
[2023-06-10 08:09] VITALS: BP 140/69; PULSE 110; RESP 18; TEMP 97.5; O2SAT 98
[2023-06-10] MEDS: BENZTROPINE MESYLATE 0.5 MG TABLET PO SCH ×2 (08:10→20:08)
[2023-06-10] MEDS: LORazepam 2 MG TABLET PO PRN ×2 (08:10→16:33)
[2023-06-10] MEDS: FAMOTIDINE 20 MG TABLET PO SCH (08:11)
[2023-06-10] MEDS: DOCUSATE SODIUM 100 MG CAPSULE PO SCH ×2 (08:11→20:03)
[2023-06-10] MEDS: AmLODIPine BESYLATE 5 MG TABLET PO SCH (08:11)
[2023-06-10] MEDS: ATORVASTATIN CALCIUM 20 MG TABLET PO SCH (08:12)
[2023-06-10] MEDS: MIRTAZAPINE 15 MG TABLET PO SCH (20:03)
[2023-06-10] MEDS: DIVALPROEX SODIUM 500 MG DR TABLET PO SCH (20:03)
[2023-06-10] MEDS: RisperiDONE 3 MG TABLET PO SCH (20:04)
[2023-06-10 20:44] VITALS: BP 139/66; PULSE 96; RESP 17; TEMP 97.4; O2SAT 98
[2023-06-11 08:22] VITALS: RESP 16
[2023-06-11] MEDS: ATORVASTATIN CALCIUM 20 MG TABLET PO SCH (08:23)
[2023-06-11] MEDS: LORazepam 2 MG TABLET PO PRN (08:24)
[2023-06-11] MEDS: AmLODIPine BESYLATE 5 MG TABLET PO SCH (08:24)
[2023-06-11] MEDS: FAMOTIDINE 20 MG TABLET PO SCH (08:24)
[2023-06-11] MEDS: DOCUSATE SODIUM 100 MG CAPSULE PO SCH ×2 (08:24→22:02)
[2023-06-11] MEDS: BENZTROPINE MESYLATE 0.5 MG TABLET PO SCH ×2 (08:25→22:03)
[2023-06-11 20:29] VITALS: RESP 18
[2023-06-11] MEDS: DIVALPROEX SODIUM 500 MG DR TABLET PO SCH (22:02)
[2023-06-11] MEDS: MIRTAZAPINE 15 MG TABLET PO SCH (22:03)
[2023-06-11] MEDS: RisperiDONE 3 MG TABLET PO SCH (22:03)
[2023-06-12 08:18] VITALS: BP 161/69; PULSE 93; RESP 18; TEMP 97.9; O2SAT 97
[2023-06-12] MEDS: AmLODIPine BESYLATE 5 MG TABLET PO SCH (08:36)
[2023-06-12] MEDS: ATORVASTATIN CALCIUM 20 MG TABLET PO SCH (08:36)
[2023-06-12] MEDS: DOCUSATE SODIUM 100 MG CAPSULE PO SCH ×2 (08:36→20:14)
[2023-06-12] MEDS: FAMOTIDINE 20 MG TABLET PO SCH (08:36)
[2023-06-12] MEDS: BENZTROPINE MESYLATE 0.5 MG TABLET PO SCH ×2 (08:38→20:16)
[2023-06-12] MEDS: LORazepam 2 MG TABLET PO PRN (17:38)
[2023-06-12 20:10] VITALS: RESP 18
[2023-06-12] MEDS: RisperiDONE 3 MG TABLET PO SCH (20:15)
[2023-06-12] MEDS: DIVALPROEX SODIUM 500 MG DR TABLET PO SCH (20:15)
[2023-06-12] MEDS: MIRTAZAPINE 15 MG TABLET PO SCH (20:15)
[2023-06-13] MEDS: LORazepam 2 MG TABLET PO PRN ×2 (00:33→08:11)
[2023-06-13 08:05] VITALS: RESP 16
[2023-06-13] MEDS: DOCUSATE SODIUM 100 MG CAPSULE PO SCH ×2 (08:11→20:32)
[2023-06-13] MEDS: FAMOTIDINE 20 MG TABLET PO SCH (08:11)
[2023-06-13] MEDS: AmLODIPine BESYLATE 5 MG TABLET PO SCH (08:11)
[2023-06-13] MEDS: ATORVASTATIN CALCIUM 20 MG TABLET PO SCH (08:11)
[2023-06-13] MEDS: BENZTROPINE MESYLATE 0.5 MG TABLET PO SCH ×2 (08:12→20:32)
[2023-06-13] MEDS: MIRTAZAPINE 15 MG TABLET PO SCH (20:29)
[2023-06-13] MEDS: DIVALPROEX SODIUM 500 MG DR TABLET PO SCH (20:32)
[2023-06-13] MEDS: RisperiDONE 3 MG TABLET PO SCH (20:32)
[2023-06-13 21:09] VITALS: BP 134/75; PULSE 82; RESP 16; TEMP 97.8; O2SAT 98
[2023-06-14 08:07] VITALS: BP 142/99; PULSE 81; RESP 17; TEMP 98.2; O2SAT 97
[2023-06-14] MEDS: ATORVASTATIN CALCIUM 20 MG TABLET PO SCH (08:39)
[2023-06-14] MEDS: AmLODIPine BESYLATE 5 MG TABLET PO SCH (08:39)
[2023-06-14] MEDS: BENZTROPINE MESYLATE 0.5 MG TABLET PO SCH ×2 (08:39→20:31)
[2023-06-14] MEDS: DOCUSATE SODIUM 100 MG CAPSULE PO SCH ×2 (08:39→20:26)
[2023-06-14] MEDS: LORazepam 2 MG TABLET PO PRN (08:39)
[2023-06-14] MEDS: FAMOTIDINE 20 MG TABLET PO SCH (08:39)
[2023-06-14] MEDS: MIRTAZAPINE 15 MG TABLET PO SCH (20:26)
[2023-06-14] MEDS: RisperiDONE 3 MG TABLET PO SCH (20:26)
[2023-06-14] MEDS: DIVALPROEX SODIUM 500 MG DR TABLET PO SCH (20:26)
[2023-06-14 21:00] VITALS: BP 141/81; PULSE 93; RESP 16; TEMP 98.2; O2SAT 98
[2023-06-15] MEDS: LORazepam 2 MG TABLET PO PRN (08:04)
[2023-06-15] MEDS: DOCUSATE SODIUM 100 MG CAPSULE PO SCH ×2 (08:04→21:39)
[2023-06-15] MEDS: ATORVASTATIN CALCIUM 20 MG TABLET PO SCH (08:04)
[2023-06-15] MEDS: FAMOTIDINE 20 MG TABLET PO SCH (08:04)
[2023-06-15] MEDS: AmLODIPine BESYLATE 5 MG TABLET PO SCH (08:05)
[2023-06-15 08:18] VITALS: BP 123/81; PULSE 100; RESP 18; TEMP 98; O2SAT 97
[2023-06-15] MEDS: BENZTROPINE MESYLATE 0.5 MG TABLET PO SCH ×2 (08:43→21:45)
[2023-06-15] MEDS: RisperiDONE 3 MG TABLET PO SCH (21:39)
[2023-06-15] MEDS: DIVALPROEX SODIUM 500 MG DR TABLET PO SCH (21:39)
[2023-06-15] MEDS: MIRTAZAPINE 15 MG TABLET PO SCH (21:40)
[2023-06-15 22:10] VITALS: BP 122/80; PULSE 88; RESP 16; TEMP 98.3; O2SAT 99
[2023-06-16] MEDS: FAMOTIDINE 20 MG TABLET PO SCH (08:05)
[2023-06-16] MEDS: AmLODIPine BESYLATE 5 MG TABLET PO SCH (08:05)
[2023-06-16] MEDS: ATORVASTATIN CALCIUM 20 MG TABLET PO SCH (08:05)
[2023-06-16] MEDS: BENZTROPINE MESYLATE 0.5 MG TABLET PO SCH ×2 (08:06→21:04)
[2023-06-16] MEDS: DOCUSATE SODIUM 100 MG CAPSULE PO SCH ×2 (08:06→20:03)
[2023-06-16] MEDS: LORazepam 2 MG TABLET PO PRN (08:07)
[2023-06-16 08:10] VITALS: BP 124/69; PULSE 80; RESP 16; TEMP 97.9; O2SAT 98
[2023-06-16] MEDS: DIVALPROEX SODIUM 500 MG DR TABLET PO SCH (20:02)
[2023-06-16] MEDS: MIRTAZAPINE 15 MG TABLET PO SCH (20:03)
[2023-06-16] MEDS: RisperiDONE 3 MG TABLET PO SCH (20:03)
[2023-06-16 20:58] VITALS: BP 131/64; PULSE 79; RESP 18; TEMP 97.9; O2SAT 98
[2023-06-17] MEDS: DOCUSATE SODIUM 100 MG CAPSULE PO SCH ×2 (08:05→20:00)
[2023-06-17] MEDS: LORazepam 2 MG TABLET PO PRN (08:05)
[2023-06-17] MEDS: ATORVASTATIN CALCIUM 20 MG TABLET PO SCH (08:05)
[2023-06-17] MEDS: BENZTROPINE MESYLATE 0.5 MG TABLET PO SCH ×2 (08:05→20:00)
[2023-06-17] MEDS: AmLODIPine BESYLATE 5 MG TABLET PO SCH (08:05)
[2023-06-17] MEDS: FAMOTIDINE 20 MG TABLET PO SCH (08:18)
[2023-06-17 09:01] VITALS: BP 135/70; PULSE 96; RESP 18; TEMP 97.9; O2SAT 96
[2023-06-17] MEDS: RisperiDONE 3 MG TABLET PO SCH (20:00)
[2023-06-17] MEDS: MIRTAZAPINE 15 MG TABLET PO SCH (20:00)
[2023-06-17] MEDS: DIVALPROEX SODIUM 500 MG DR TABLET PO SCH (20:00)
[2023-06-17 20:18] VITALS: BP 128/72; PULSE 88; RESP 17; TEMP 97.6; O2SAT 98
[2023-06-18] MEDS: FAMOTIDINE 20 MG TABLET PO SCH (08:23)
[2023-06-18] MEDS: BENZTROPINE MESYLATE 0.5 MG TABLET PO SCH ×2 (08:23→20:03)
[2023-06-18] MEDS: LORazepam 2 MG TABLET PO PRN ×2 (08:23→17:41)
[2023-06-18] MEDS: DOCUSATE SODIUM 100 MG CAPSULE PO SCH ×2 (08:23→20:03)
[2023-06-18] MEDS: AmLODIPine BESYLATE 5 MG TABLET PO SCH (08:23)
[2023-06-18] MEDS: ATORVASTATIN CALCIUM 20 MG TABLET PO SCH (08:23)
[2023-06-18 13:06] VITALS: BP 130/75; PULSE 80; RESP 18; TEMP 97.8; O2SAT 97
[2023-06-18] MEDS: MIRTAZAPINE 15 MG TABLET PO SCH (20:03)
[2023-06-18] MEDS: DIVALPROEX SODIUM 500 MG DR TABLET PO SCH (20:03)
[2023-06-18] MEDS: RisperiDONE 3 MG TABLET PO SCH (20:04)
[2023-06-18 22:01] VITALS: BP 118/63; PULSE 65; RESP 17; TEMP 97.4; O2SAT 98
[2023-06-19] MEDS: LORazepam 2 MG TABLET PO PRN ×2 (03:42→22:52)
[2023-06-19 08:20] VITALS: BP 131/78; PULSE 83; RESP 17; TEMP 97; O2SAT 98
[2023-06-19] MEDS: AmLODIPine BESYLATE 5 MG TABLET PO SCH (08:21)
[2023-06-19] MEDS: ATORVASTATIN CALCIUM 20 MG TABLET PO SCH (08:21)
[2023-06-19] MEDS: FAMOTIDINE 20 MG TABLET PO SCH (08:21)
[2023-06-19] MEDS: BENZTROPINE MESYLATE 0.5 MG TABLET PO SCH ×2 (08:21→20:05)
[2023-06-19] MEDS: DOCUSATE SODIUM 100 MG CAPSULE PO SCH ×2 (08:21→20:05)
[2023-06-19] MEDS: MIRTAZAPINE 15 MG TABLET PO SCH (20:05)
[2023-06-19] MEDS: RisperiDONE 3 MG TABLET PO SCH (20:05)
[2023-06-19] MEDS: DIVALPROEX SODIUM 500 MG DR TABLET PO SCH (20:05)
[2023-06-19 22:53] VITALS: BP 115/76; PULSE 80; RESP 18; TEMP 97.8; O2SAT 98
[2023-06-20] MEDS: BENZTROPINE MESYLATE 0.5 MG TABLET PO SCH ×2 (08:03→20:00)
[2023-06-20] MEDS: ATORVASTATIN CALCIUM 20 MG TABLET PO SCH (08:04)
[2023-06-20] MEDS: AmLODIPine BESYLATE 5 MG TABLET PO SCH (08:04)
[2023-06-20] MEDS: DOCUSATE SODIUM 100 MG CAPSULE PO SCH ×2 (08:04→20:00)
[2023-06-20] MEDS: FAMOTIDINE 20 MG TABLET PO SCH (08:04)
[2023-06-20 08:12] VITALS: BP 145/80; PULSE 83; RESP 16; TEMP 98.6; O2SAT 98
[2023-06-20] MEDS: LORazepam 2 MG TABLET PO PRN ×2 (10:18→14:37)
[2023-06-20] MEDS: RisperiDONE 3 MG TABLET PO SCH (20:00)
[2023-06-20] MEDS: DIVALPROEX SODIUM 500 MG DR TABLET PO SCH (20:00)
[2023-06-20] MEDS: MIRTAZAPINE 15 MG TABLET PO SCH (20:00)
[2023-06-20 22:08] VITALS: BP 137/70; PULSE 67; RESP 17; TEMP 97.5; O2SAT 98
[2023-06-21 08:03] VITALS: BP 159/88; PULSE 94; RESP 18; TEMP 97.5; O2SAT 96
[2023-06-21] MEDS: BENZTROPINE MESYLATE 0.5 MG TABLET PO SCH ×2 (08:09→20:28)
[2023-06-21] MEDS: FAMOTIDINE 20 MG TABLET PO SCH (08:09)
[2023-06-21] MEDS: ATORVASTATIN CALCIUM 20 MG TABLET PO SCH (08:09)
[2023-06-21] MEDS: AmLODIPine BESYLATE 5 MG TABLET PO SCH (08:09)
[2023-06-21] MEDS: LORazepam 2 MG TABLET PO PRN (08:09)
[2023-06-21] MEDS: DOCUSATE SODIUM 100 MG CAPSULE PO SCH ×2 (08:10→20:28)
[2023-06-21 20:15] VITALS: BP 120/67; PULSE 71; RESP 16; TEMP 97.8; O2SAT 97
[2023-06-21] MEDS: MIRTAZAPINE 15 MG TABLET PO SCH (20:28)
[2023-06-21] MEDS: DIVALPROEX SODIUM 500 MG DR TABLET PO SCH (20:28)
[2023-06-21] MEDS: RisperiDONE 3 MG TABLET PO SCH (20:28)
[2023-06-22] MEDS: ATORVASTATIN CALCIUM 20 MG TABLET PO SCH (08:23)
[2023-06-22] MEDS: DOCUSATE SODIUM 100 MG CAPSULE PO SCH ×2 (08:24→20:21)
[2023-06-22] MEDS: AmLODIPine BESYLATE 5 MG TABLET PO SCH (08:25)
[2023-06-22] MEDS: FAMOTIDINE 20 MG TABLET PO SCH (08:25)
[2023-06-22] MEDS: BENZTROPINE MESYLATE 0.5 MG TABLET PO SCH ×2 (08:25→20:21)
[2023-06-22 08:36] VITALS: BP 119/78; PULSE 77; RESP 16; TEMP 97.6; O2SAT 97
[2023-06-22] MEDS: LORazepam 2 MG TABLET PO PRN (14:30)
[2023-06-22 20:04] VITALS: BP 136/75; PULSE 82; RESP 18; TEMP 97.8; O2SAT 97
[2023-06-22] MEDS: RisperiDONE 3 MG TABLET PO SCH (20:21)
[2023-06-22] MEDS: MIRTAZAPINE 15 MG TABLET PO SCH (20:21)
[2023-06-22] MEDS: DIVALPROEX SODIUM 500 MG DR TABLET PO SCH (20:21)
[2023-06-23] MEDS: ATORVASTATIN CALCIUM 20 MG TABLET PO SCH (08:21)
[2023-06-23] MEDS: BENZTROPINE MESYLATE 0.5 MG TABLET PO SCH ×2 (08:21→20:00)
[2023-06-23] MEDS: LORazepam 2 MG TABLET PO PRN ×2 (08:21→12:27)
[2023-06-23] MEDS: AmLODIPine BESYLATE 5 MG TABLET PO SCH (08:21)
[2023-06-23] MEDS: FAMOTIDINE 20 MG TABLET PO SCH (08:21)
[2023-06-23] MEDS: DOCUSATE SODIUM 100 MG CAPSULE PO SCH ×2 (08:22→20:00)
[2023-06-23 08:25] VITALS: BP 112/59; PULSE 81; RESP 16; TEMP 96.6; O2SAT 98
[2023-06-23] MEDS: MIRTAZAPINE 15 MG TABLET PO SCH (20:00)
[2023-06-23] MEDS: RisperiDONE 3 MG TABLET PO SCH (20:00)
[2023-06-23] MEDS: DIVALPROEX SODIUM 500 MG DR TABLET PO SCH (20:00)
[2023-06-23 23:20] VITALS: BP 118/64; PULSE 80; RESP 18; TEMP 97.6; O2SAT 97
[2023-06-24] MEDS: FAMOTIDINE 20 MG TABLET PO SCH (07:59)
[2023-06-24] MEDS: LORazepam 2 MG TABLET PO PRN ×2 (07:59→20:02)
[2023-06-24] MEDS: ATORVASTATIN CALCIUM 20 MG TABLET PO SCH (07:59)
[2023-06-24] MEDS: AmLODIPine BESYLATE 5 MG TABLET PO SCH (07:59)
[2023-06-24] MEDS: BENZTROPINE MESYLATE 0.5 MG TABLET PO SCH ×2 (07:59→20:01)
[2023-06-24] MEDS: DOCUSATE SODIUM 100 MG CAPSULE PO SCH ×2 (07:59→20:01)
[2023-06-24 08:48] VITALS: BP 110/64; PULSE 83; RESP 18; TEMP 96.6; O2SAT 97
[2023-06-24] MEDS: DIVALPROEX SODIUM 500 MG DR TABLET PO SCH (20:01)
[2023-06-24] MEDS: RisperiDONE 3 MG TABLET PO SCH (20:02)
[2023-06-24] MEDS: MIRTAZAPINE 15 MG TABLET PO SCH (20:02)
[2023-06-24 20:58] VITALS: BP 120/83; PULSE 74; RESP 17; TEMP 97.5; O2SAT 97
[2023-06-25] MEDS: FAMOTIDINE 20 MG TABLET PO SCH (08:01)
[2023-06-25] MEDS: AmLODIPine BESYLATE 5 MG TABLET PO SCH (08:01)
[2023-06-25] MEDS: BENZTROPINE MESYLATE 0.5 MG TABLET PO SCH ×2 (08:01→20:05)
[2023-06-25] MEDS: DOCUSATE SODIUM 100 MG CAPSULE PO SCH ×2 (08:01→20:04)
[2023-06-25] MEDS: LORazepam 2 MG TABLET PO PRN (08:01)
[2023-06-25] MEDS: ATORVASTATIN CALCIUM 20 MG TABLET PO SCH (08:02)
[2023-06-25 08:05] VITALS: BP 112/62; PULSE 79; RESP 16; TEMP 97.6; O2SAT 98
[2023-06-25] MEDS: RisperiDONE 3 MG TABLET PO SCH (20:05)
[2023-06-25] MEDS: DIVALPROEX SODIUM 500 MG DR TABLET PO SCH (20:05)
[2023-06-25] MEDS: MIRTAZAPINE 15 MG TABLET PO SCH (20:08)
[2023-06-25 20:09] VITALS: BP 115/65; PULSE 82; RESP 17; TEMP 97.8; O2SAT 99
[2023-06-25 20:12] VITALS: BP 105/63; PULSE 89; RESP 17; TEMP 98.5; O2SAT 98
[2023-06-26] MEDS: DOCUSATE SODIUM 100 MG CAPSULE PO SCH ×2 (08:19→20:29)
[2023-06-26] MEDS: FAMOTIDINE 20 MG TABLET PO SCH (08:19)
[2023-06-26] MEDS: AmLODIPine BESYLATE 5 MG TABLET PO SCH (08:19)
[2023-06-26] MEDS: BENZTROPINE MESYLATE 0.5 MG TABLET PO SCH ×2 (08:19→20:29)
[2023-06-26] MEDS: ATORVASTATIN CALCIUM 20 MG TABLET PO SCH (08:19)
[2023-06-26 08:30] VITALS: BP 148/83; PULSE 89; RESP 17; TEMP 97.1; O2SAT 98
[2023-06-26] MEDS: DIVALPROEX SODIUM 500 MG DR TABLET PO SCH (20:30)
[2023-06-26] MEDS: MIRTAZAPINE 15 MG TABLET PO SCH (20:30)
[2023-06-26] MEDS: RisperiDONE 3 MG TABLET PO SCH (20:30)
[2023-06-26 20:52] VITALS: BP 156/91; PULSE 84; RESP 18; TEMP 97.3; O2SAT 96
[2023-06-27] MEDS: BENZTROPINE MESYLATE 0.5 MG TABLET PO SCH ×2 (08:02→20:09)
[2023-06-27] MEDS: DOCUSATE SODIUM 100 MG CAPSULE PO SCH ×2 (08:02→20:09)
[2023-06-27] MEDS: ATORVASTATIN CALCIUM 20 MG TABLET PO SCH (08:02)
[2023-06-27] MEDS: FAMOTIDINE 20 MG TABLET PO SCH (08:02)
[2023-06-27] MEDS: AmLODIPine BESYLATE 5 MG TABLET PO SCH (08:02)
[2023-06-27] MEDS: LORazepam 2 MG TABLET PO PRN (08:28)
[2023-06-27 08:32] VITALS: BP 148/79; PULSE 80; RESP 18; TEMP 97.5; O2SAT 97
[2023-06-27] MEDS: RisperiDONE 3 MG TABLET PO SCH (20:09)
[2023-06-27] MEDS: MIRTAZAPINE 15 MG TABLET PO SCH (20:09)
[2023-06-27] MEDS: DIVALPROEX SODIUM 500 MG DR TABLET PO SCH (20:09)
[2023-06-27 20:54] VITALS: BP 121/63; PULSE 96; RESP 16; TEMP 97.5; O2SAT 96
[2023-06-28] MEDS: BENZTROPINE MESYLATE 0.5 MG TABLET PO SCH ×2 (08:18→20:20)
[2023-06-28] MEDS: AmLODIPine BESYLATE 5 MG TABLET PO SCH (08:18)
[2023-06-28] MEDS: FAMOTIDINE 20 MG TABLET PO SCH (08:18)
[2023-06-28] MEDS: DOCUSATE SODIUM 100 MG CAPSULE PO SCH ×2 (08:18→20:20)
[2023-06-28] MEDS: ATORVASTATIN CALCIUM 20 MG TABLET PO SCH (08:18)
[2023-06-28 10:30] VITALS: BP 131/60; PULSE 81; RESP 17; TEMP 97.8; O2SAT 97
[2023-06-28] MEDS: LORazepam 2 MG TABLET PO PRN (11:33)
[2023-06-28 20:05] VITALS: BP 115/79; PULSE 77; RESP 18; TEMP 97.6
[2023-06-28] MEDS: RisperiDONE 3 MG TABLET PO SCH (20:20)
[2023-06-28] MEDS: DIVALPROEX SODIUM 500 MG DR TABLET PO SCH (20:20)
[2023-06-28] MEDS: MIRTAZAPINE 15 MG TABLET PO SCH (20:20)
[2023-06-29] MEDS: FAMOTIDINE 20 MG TABLET PO SCH (08:08)
[2023-06-29] MEDS: LORazepam 2 MG TABLET PO PRN (08:08)
[2023-06-29] MEDS: AmLODIPine BESYLATE 5 MG TABLET PO SCH (08:08)
[2023-06-29] MEDS: ATORVASTATIN CALCIUM 20 MG TABLET PO SCH (08:08)
[2023-06-29] MEDS: BENZTROPINE MESYLATE 0.5 MG TABLET PO SCH ×2 (08:08→20:27)
[2023-06-29] MEDS: DOCUSATE SODIUM 100 MG CAPSULE PO SCH ×2 (08:09→20:27)
[2023-06-29 08:26] VITALS: BP 132/72; PULSE 75; RESP 16; TEMP 97.6; O2SAT 99
[2023-06-29] MEDS: RisperiDONE 3 MG TABLET PO SCH (20:27)
[2023-06-29] MEDS: DIVALPROEX SODIUM 500 MG DR TABLET PO SCH (20:27)
[2023-06-29] MEDS: MIRTAZAPINE 15 MG TABLET PO SCH (20:27)
[2023-06-29 21:29] VITALS: BP 130/76; PULSE 79; RESP 18; TEMP 97.8; O2SAT 98
[2023-06-30 00:04] VITALS: BP 130/76; PULSE 79; RESP 16; TEMP 97.8; O2SAT 98
[2023-06-30 08:07] VITALS: BP 137/59; PULSE 87; RESP 18; TEMP 97.2; O2SAT 95
[2023-06-30] MEDS: LORazepam 2 MG TABLET PO PRN ×2 (08:11→13:53)
[2023-06-30] MEDS: AmLODIPine BESYLATE 5 MG TABLET PO SCH (08:11)
[2023-06-30] MEDS: ATORVASTATIN CALCIUM 20 MG TABLET PO SCH (08:11)
[2023-06-30] MEDS: DOCUSATE SODIUM 100 MG CAPSULE PO SCH ×2 (08:11→20:03)
[2023-06-30] MEDS: BENZTROPINE MESYLATE 0.5 MG TABLET PO SCH ×2 (08:11→20:03)
[2023-06-30] MEDS: FAMOTIDINE 20 MG TABLET PO SCH (08:11)
[2023-06-30] MEDS: RisperiDONE 3 MG TABLET PO SCH (20:03)
[2023-06-30] MEDS: MIRTAZAPINE 15 MG TABLET PO SCH (20:03)
[2023-06-30] MEDS: DIVALPROEX SODIUM 500 MG DR TABLET PO SCH (20:03)
[2023-06-30 21:19] VITALS: BP 122/69; PULSE 78; RESP 17; TEMP 96.9; O2SAT 97
[2023-07-01] MEDS: DOCUSATE SODIUM 100 MG CAPSULE PO SCH ×2 (08:03→20:17)
[2023-07-01] MEDS: BENZTROPINE MESYLATE 0.5 MG TABLET PO SCH ×2 (08:03→20:18)
[2023-07-01] MEDS: LORazepam 2 MG TABLET PO PRN (08:03)
[2023-07-01] MEDS: AmLODIPine BESYLATE 5 MG TABLET PO SCH (08:03)
[2023-07-01] MEDS: FAMOTIDINE 20 MG TABLET PO SCH (08:03)
[2023-07-01 08:11] VITALS: BP 131/83; PULSE 70; RESP 16; TEMP 97.6; O2SAT 100
[2023-07-01] MEDS: ATORVASTATIN CALCIUM 20 MG TABLET PO SCH (08:22)
[2023-07-01] MEDS: MIRTAZAPINE 15 MG TABLET PO SCH (20:17)
[2023-07-01] MEDS: DIVALPROEX SODIUM 500 MG DR TABLET PO SCH (20:18)
[2023-07-01] MEDS: RisperiDONE 3 MG TABLET PO SCH (20:18)
[2023-07-02] MEDS: AmLODIPine BESYLATE 5 MG TABLET PO SCH (08:11)
[2023-07-02] MEDS: ATORVASTATIN CALCIUM 20 MG TABLET PO SCH (08:11)
[2023-07-02] MEDS: FAMOTIDINE 20 MG TABLET PO SCH (08:11)
[2023-07-02] MEDS: BENZTROPINE MESYLATE 0.5 MG TABLET PO SCH ×2 (08:11→20:10)
[2023-07-02] MEDS: DOCUSATE SODIUM 100 MG CAPSULE PO SCH ×2 (08:11→20:10)
[2023-07-02] MEDS: LORazepam 2 MG TABLET PO PRN (08:13)
[2023-07-02 08:45] VITALS: BP 108/67; PULSE 75; RESP 18; TEMP 97.3; O2SAT 96
[2023-07-02] MEDS: DIVALPROEX SODIUM 500 MG DR TABLET PO SCH (20:10)
[2023-07-02] MEDS: MIRTAZAPINE 15 MG TABLET PO SCH (20:10)
[2023-07-02] MEDS: RisperiDONE 3 MG TABLET PO SCH (20:10)
[2023-07-02 21:04] VITALS: BP 141/79; PULSE 67; RESP 18; TEMP 96.9; O2SAT 96
[2023-07-03] MEDS: ATORVASTATIN CALCIUM 20 MG TABLET PO SCH (08:21)
[2023-07-03] MEDS: BENZTROPINE MESYLATE 0.5 MG TABLET PO SCH ×2 (08:22→20:02)
[2023-07-03] MEDS: DOCUSATE SODIUM 100 MG CAPSULE PO SCH ×2 (08:22→20:02)
[2023-07-03] MEDS: AmLODIPine BESYLATE 5 MG TABLET PO SCH (08:22)
[2023-07-03] MEDS: LORazepam 2 MG TABLET PO PRN (08:22)
[2023-07-03] MEDS: FAMOTIDINE 20 MG TABLET PO SCH (08:22)
[2023-07-03 08:49] VITALS: BP 125/87; PULSE 78; RESP 20; TEMP 97.3; O2SAT 99
[2023-07-03] MEDS: RisperiDONE 3 MG TABLET PO SCH (20:02)
[2023-07-03] MEDS: MIRTAZAPINE 15 MG TABLET PO SCH (20:02)
[2023-07-03] MEDS: DIVALPROEX SODIUM 500 MG DR TABLET PO SCH (20:02)
[2023-07-03 23:34] VITALS: BP 128/78; PULSE 82; RESP 18; TEMP 97.5; O2SAT 98
[2023-07-04] MEDS: LORazepam 2 MG TABLET PO PRN (08:00)
[2023-07-04] MEDS: DOCUSATE SODIUM 100 MG CAPSULE PO SCH (08:01)
[2023-07-04] MEDS: BENZTROPINE MESYLATE 0.5 MG TABLET PO SCH (08:01)
[2023-07-04] MEDS: AmLODIPine BESYLATE 5 MG TABLET PO SCH (08:01)
[2023-07-04] MEDS: ATORVASTATIN CALCIUM 20 MG TABLET PO SCH (08:01)
[2023-07-04] MEDS: FAMOTIDINE 20 MG TABLET PO SCH (08:01)
[2023-07-04 08:09] VITALS: BP 115/67; PULSE 72; RESP 16; TEMP 97.6; O2SAT 95
[2023-07-04] MEDS ORDERED: DIVA-112 PO (08:37)
[2023-07-04] MEDS ORDERED: AMLO-257 PO (08:37)
[2023-07-04] MEDS ORDERED: MIRT-89 PO (08:37)
[2023-07-04] MEDS ORDERED: RISP120S SQ (08:37)
[2023-07-04] MEDS ORDERED: FAMO20 PO (08:37)
[2023-07-04] MEDS ORDERED: BENZ0.5T6 PO (08:37)
[2023-07-04] MEDS ORDERED: DOCU-385 PO (08:37)
[2023-07-04] MEDS ORDERED: ATOR20TA65 PO (08:37)
== END 2023-07-04 18:29 | disposition home or self-care (01) | DRG 750 ==
LOC: B3A 17:07
PROVIDERS: ADMIT Psychiatry & Neurology Psychiatry; ATTEND Psychiatry & Neurology Child & Adolescent Psychiatry
PROC: GZHZZZZ Group Psychotherapy (ICD-10-PCS; principal; 2023-06-15)
DX: F25.1 Schizoaffective disorder, depressive type (principal); R45.851 Suicidal ideations; D32.9 Benign neoplasm of meninges, unspecified; I10 Essential (primary) hypertension; E78.5 Hyperlipidemia, unspecified; F41.9 Anxiety disorder, unspecified; M10.9 Gout, unspecified; Z79.899 Other long term (current) drug therapy; Z59.00 Homelessness unspecified
CPT/HCPCS: 80061; 80164; 83036; 84443; 86803; 87081; 87340; J1200; J1630; J2060; Q9967

== ENCOUNTER 2023-05-31 18:50 | Emergency (ER) | payer MEDICAID, OTHER ==
[~2023-05-31] VITALS: Ht 160 cm; Wt 61.2 kg
[2023-05-31 23:03] VITALS: TEMP 98.9
[2023-05-31] MEDS ORDERED: IBUPROFEN 600 MG TABLET PO ONE (23:15)
[2023-05-31 23:53] VITALS: BP 156/76; PULSE 80; RESP 18
== END 2023-06-01 00:52 ==
LOC: EMS 18:52
DX: S70.02XA Contusion of left hip, initial encounter (principal); S70.01XA Contusion of right hip, initial encounter; S00.93XA Contusion of unspecified part of head, initial encounter; W19.XXXA Unspecified fall, initial encounter; Y93.89 Activity, other specified; Y92.89 Other specified places as the place of occurrence of the external cause; Y99.8 Other external cause status; F41.9 Anxiety disorder, unspecified; E78.00 Pure hypercholesterolemia, unspecified; I10 Essential (primary) hypertension
CPT/HCPCS: 70450; 72125; 99284